=== PATIENT | male | born 1945 | race Caucasian/White ===

== ENCOUNTER 2017-05-24 13:15 | Inpatient (IN) | payer OTHER ==
[2017-05-24] MEDS: ENOXAPARIN 100 MG/ML SYR SQ SCH ×2 (03:00→15:00)
--- OUTSIDE RECORDS SUMMARY | 2017-05-24 13:17 | XMS REPORT ---
:1945 Author Organization eClinicalWorks Care Team Providers Name Role Phone OconnorRocco Provider Role Unavailable Allergies No Known Allergies Problems Problem Type Condition Code Onset Dates Condition Status Problem Hyperlipidemia, mixed E78.2 Active Problem Osteoarthritis of multiple joints M15.9 Active Problem Benign essential HTN I10 Active Assessment Osteoarthritis of multiple joints M15.9 Active Assessment Benign essential HTN I10 Active Assessment Hyperlipidemia, mixed E78.2 Active Medications Medication Code Code Instructions Start End Status Dosage System Date Date Norvasc [facility] 37196354991 10 MG Orally Inactive 1 tablet Once a day Hydrochlorothiazide [facility] 08565326430 12.5 MG Orally March Active 1 capsule Once a day 28, in the 2018 morning Lipitor [facility] 13460371507 20 MG Orally Active 1 tablet Once a day Cozaar [facility] 22123044526 50 MG Orally Active 1 tablet Once a day Results No Known Results Summary Purpose eClinicalWorks Submission
[2017-05-24 13:46] LABS: Absolute Lymphocytes (CBC) 1.8 K/uL (0.7-4.9); Absolute Monocytes 1.1 K/uL (0.1-1.3); Absolute Neutrophil 7.9 K/uL (1.8-8.0); Basophils % 0.7 % (0-1.3); Eosinophils % 0.7 % (0-4.4); Hematocrit 41.1 % (39.6-49.0); Lymphocytes % 16.8 % (15.3-44.8); MCH 29.3 pg (27.0-35.0); MCV 88.6 fL (80-100); MPV 9.1 fL (7.6-11.3); Monocytes % 9.8 % (3.3-12.3); RBC Red Blood Cell Count 4.64 M/uL (4.33-5.43)
[2017-05-24 13:50] LABS: Protime INR 1.03
[2017-05-24 13:52] LABS: Potassium 3.5 mEq/L (3.6-5.0)
--- NOTE | 2017-05-24 13:56 | RAD REPORT ---
EXAM DESCRIPTION: RAD - Chest Single View - 05/24/2017 1:48 pm CLINICAL HISTORY: Chest pain COMPARISON: April 16 TECHNIQUE: AP portable chest image was obtained 1344 hours . FINDINGS: Lungs are clear. Heart and vasculature are normal. No measurable pleural effusion and no p neumothorax. No gross bony abnormality seen. No acute aortic findings suspected. IMPRESSION: No acute cardiopulmonary process. No significant interval change.
[2017-05-24 13:58] LABS: Albumin 4.1 g/dL (3.2-5.5); Bilirubin Direct 0.2 mg/dL (0-0.2); Bilirubin Total 1.1 mg/dL (0.3-1.2); Magnesium 1.9 mg/dL (1.8-2.5); Protein, Total 7.7 g/dL (6.0-8.3)
[2017-05-24 14:02] LABS: CKMB Creatine Kinase MB 2.9 ng/ml (0.3-4.0)
[2017-05-24] MEDS ORDERED: NA CHLORIDE 0.9% 1,000 ML ONE (14:07)
[2017-05-24] MEDS ORDERED: ASPIRIN EC 81 MG TAB PO ONE (14:07)
[2017-05-24] MEDS ORDERED: FAMOTIDINE 20 MG/2 ML VIAL IV ONE (14:07)
--- NOTE | 2017-05-24 14:54 | EDPHYS ---
Physician Documentation [facility] Name: Amador Dyer Jr Age: 71 yrs Sex: Male : 1945 Arrival Date: 05/24/2017 Time: 13:19 Bed 26 Private MD: ED Physician Graeme Verde HPI: 05/24 14:35 This 71 yrs old Male presents to ER via EMS with complaints of Chest Pain > aaron 31 y/o. 14:35 The patient or guardian reports chest pain that is located primarily in the substernal aaron area, anterior chest wall. Onset: this morning. The pain radiates to Associated signs and symptoms: The patient has no apparent associated signs or symptoms. The chest pain is described as burning, a heaviness, a pressure. Duration: The patient or guardian reports a single episode, that is still ongoing, but improving. Modifying factors: The symptoms are alleviated by nothing. Severity of pain: At its worst the pain was moderate in the emergency department the pain has improved moderately. The patient has not experienced similar symptoms in the past. Historical: - Allergies: 13:29 No Known Allergies; kr2 - Home Meds: 13:24 losartan 50 mg oral tab [Active]; atorvastatin Oral [Active]; aspirin 81 mg Oral TbEC 1 kr2 tab once daily [Active]; atorvastatin oral oral [Active]; glucosamine-chondroitin oral oral [Active]; hydrochlorothiazide 12.5 mg Oral cap 1 cap once daily [Active]; senior vitamin [Active]; - PMHx: 13:24 High Cholesterol; Hypertension; kr2 - PSHx: 13:24 Appendectomy; Cholecystectomy; kr2 - Immunization history:: Adult Immunizations unknown. - Social history:: Smoking status: Patient/guardian denies using tobacco, the patient reports quitting approximately 15 years ago. - Family history:: not pertinent. ROS: 14:35 Constitutional: Negative for fever, chills, and weight loss, Eyes: Negative for injury, aaron pain, redness, and discharge, ENT: Negative for injury, pain, and discharge, Neck: Negative for injury, pain, and swelling, Respiratory: Negative for shortness of breath, cough, wheezing, and pleuritic chest pain, Abdomen/GI: Negative for abdominal pain, nausea, vomiting, diarrhea, and constipation, Back: Negative for injury and pain, : Negative for injury, bleeding, discharge, and swelling, MS/Extremity: Negative for injury and deformity, Skin: Negative for injury, rash, and discoloration, Neuro: Negative for headache, weakness, numbness, tingling, and seizure, Psych: Negative for depression, anxiety, suicide ideation, homicidal ideation, and hallucinations, Allergy/Immunology: Negative for hives, rash, and allergies, Endocrine: Negative for neck swelling, polydipsia, polyuria, polyphagia, and marked weight changes, Hematologic/Lymphatic: Negative for swollen nodes, abnormal bleeding, and unusual bruising. 14:35 Cardiovascular: Positive for chest pain. Exam: 14:35 Constitutional: This is a well developed, well nourished patient who is awake, alert, aaron and in no acute distress. Head/Face: Normocephalic, atraumatic. Eyes: Pupils equal round and reactive to light, extra-ocular motions intact. Lids and lashes normal. Conjunctiva and sclera are non-icteric and not injected. Cornea within normal limits. Periorbital areas with no swelling, redness, or edema. ENT: Nares patent. No nasal discharge, no septal abnormalities noted. Tympanic membranes are normal and external auditory canals are clear. Oropharynx with no redness, swelling, or masses, exudates, or evidence of obstruction, uvula midline. Mucous membranes moist. Neck: Trachea midline, no thyromegaly or masses palpated, and no cervical lymphadenopathy. Supple, full range of motion without nuchal rigidity, or vertebral point tenderness. No Meningismus. Chest/axilla: Normal chest wall appearance and motion. Nontender with no deformity. No lesions are appreciated. Respiratory: Lungs have equal breath sounds bilaterally, clear to auscultation and percussion. No rales, rhonchi or wheezes noted. No increased work of breathing, no retractions or nasal flaring. Abdomen/GI: Soft, non-tender, with normal bowel sounds. No distension or tympany. No guarding or rebound. No evidence of tenderness throughout. Back: No spinal tenderness. No costovertebral tenderness. Full range of motion. Male : Normal genitalia with no discharge or lesions. Skin: Warm, dry with normal turgor. Normal color with no rashes, no lesions, and no evidence of cellulitis. MS/ Extremity: Pulses equal, no cyanosis. Neurovascular intact. Full, normal range of motion. Neuro: Awake and alert, GCS 15, oriented to person, place, time, and situation. Cranial nerves II-XII grossly intact. Motor strength 5/5 in all extremities. Sensory grossly intact. Cerebellar exam normal. Normal gait. Psych: Awake, alert, with orientation to person, place and time. Behavior, mood, and affect are within normal limits. 14:35 Cardiovascular: Rate: normal, Rhythm: regular, Pulses: Pulses are 4+ in bilateral radial, brachial, femoral, popliteal, posterior tibial and and dorsalis pedis arteries.. Heart sounds: normal, Edema: 4+ edema to level of right forearm, left midcalf, left forearm and right midcalf, JVD: is not appreciated. Vital Signs: 13:19 BP 169 / 93; Pulse 76; Resp 18; Temp 98.6; Pulse Ox 98% on 2 lpm NC; Weight 104.33 kg; kr2 Height 5 ft. 11 in. (180.34 cm); Pain 4/10; 14:30 BP 171 / 96; Pulse 78; Resp 19; Pulse Ox 98% on 2 lpm NC; kr2 15:34 BP 158 / 93; Pulse 68; Resp 20; Pulse Ox 100% on 2 lpm NC; kr2 16:45 BP 134 / 97; Pulse 60; Resp 16; Pulse Ox 99% on 2 lpm NC; kr2 17:30 BP 119 / 95; Pulse 62; Resp 16; Pulse Ox 98% on 2 lpm NC; kr2 13:19 Body Mass Index 32.08 (104.33 kg, 180.34 cm) kr2 MDM: 13:19 Patient medically screened. [facility] 14:38 Data reviewed: vital signs, nurses notes, lab test result(s), EKG, radiologic studies, aaron plain films. 05/24 13:24 Order name: Basic Metabolic Panel; Complete Time: 14:31 05/24 13:24 Order name: BNP; Complete Time: 14:31 05/24 13:24 Order name: CBC with Diff; Complete Time: 14:31 05/24 13:24 Order name: Ckmb; Complete Time: 14:31 05/24 13:24 Order name: CPK; Complete Time: 14:05/24 13:24 Order name: LFT's; Complete Time: 14:31 ss 05/24 13:24 Order name: Magnesium; Complete Time: 14:31 ss 05/24 13:24 Order name: PT-INR; Complete Time: 14:31 05/24 13:24 Order name: Ptt, Activated; Complete Time: 14:31 ss 05/24 13:24 Order name: Troponin (emerg Dept Use Only); Complete Time: 14:31 ss 05/24 13:27 Order name: Lipase; Complete Time: 14:31 aaron 05/24 15:15 Order name: Basic Metabolic Panel EDMS 05/24 15:15 Order name: Basic Metabolic Panel EDMS 05/24 15:15 Order name: CBC with Automated Diff EDMS 05/24 13:24 Order name: XRAY Chest (1 view); Complete Time: 14:31 ss 05/24 15:15 Order name: CBC with Automated Diff EDMS 05/24 15:15 Order name: Troponin I EDMS 05/24 15:15 Order name: Troponin I EDMS 05/24 15:15 Order name: Troponin I EDNH 05/24 13:24 Order name: EKG; Complete Time: 13:25 05/24 13:24 Order name: Cardiac monitoring; Complete Time: 13:25 05/24 13:24 Order name: EKG - Nurse/Tech; Complete Time: 13:25 05/24 13:24 Order name: IV Saline Lock; Complete Time: 13:25 05/24 13:24 Order name: Labs collected and sent; Complete Time: 13:25 05/24 13:24 Order name: O2 Per Protocol; Complete Time: 13:25 05/24 13:24 Order name: O2 Sat Monitoring; Complete Time: 13:25 05/24 13:24 Order name: Urine Dipstick-Ancillary (obtain specimen); Complete Time: 14:25 05/24 14:56 Order name: CONS Physician Consult EDNH 05/24 15:15 Order name: Heart Healthy EDNH 05/24 15:15 Order name: NPO EDMS 05/24 15:15 Order name: EKG Electrocardiogram EDMS 05/24 15:15 Order name: EKG Electrocardiogram EDMS 05/24 15:15 Order name: EKG Electrocardiogram EDNH 05/24 15:15 Order name: EKG Electrocardiogram EDNH Administered Medications: 13:53 CANCELLED (received 324mg by EMS): Aspirin 162 mg PO once kr2 14:00 Drug: NS 0.9% 1000 ml Route: IV; Rate: 125 ml/hr; Site: left antecubital; kr2 17:27 Follow up: Response: No adverse reaction; IV Status: Infusion continued upon admission kr2 14:00 Drug: Pepcid 20 mg Route: IVP; Site: left antecubital; kr2 17:28 Follow up: Response: No adverse reaction kr2 15:11 Drug: Lopressor 2.5 mg Route: IVP; Site: left antecubital; kr2 17:26 Follow up: Response: No adverse reaction kr2 15:12 Drug: PlaVIX 600 mg Route: PO; kr2 17:26 Follow up: Response: No adverse reaction kr2 15:12 Drug: Lovenox 1 mg/kg Route: Sub-Q; Site: right lower abdomen; kr2 17:28 Follow up: Response: No adverse reaction kr2 15:12 Drug: Lopressor (metoprolol TARTRATE) 50 mg Route: PO; kr2 17:28 Follow up: Response: No adverse reaction kr2 15:23 Drug: Potassium Chloride 40 mEq Route: PO; kr2 17:27 Follow up: Response: No adverse reaction kr2 15:24 Not Given (pulse 59): Lopressor 2.5 mg IVP once; Hold for SBP <100 or HR <60. kr2 17:29 Not Given (Patient Refused): Zofran 4 mg IVP once; over 2 minutes kr2 17:30 Not Given (Patient Refused): morphine 2 mg IVP once kr2 Disposition: 05/24/17 14:53 Hospitalization ordered by Vega Lao for Inpatient Admission. Preliminary diagnosis are Other chest pain, Essential (primary) hypertension, Non-ST elevation (NSTEMI) myocardial infarction. - Bed requested for Intensive Care Unit. - Status is Inpatient Admission. kr2 - Condition is Stable. - Problem is new. - Symptoms have improved. UTI on Admission? No Signatures: Dispatcher [employer] EDOksana Martinez RN RN dw Anderson, Corey, MD MD cha Therrien, Shelly, LORIN-C ASSEMBLY MACHINE TOOL SETTER-Elizabeth Bill RN RN Jannet Back RN RN kr2 Corrections: (The following items were deleted from the chart) 13:53 13:27 Aspirin 162 mg PO once ordered. [facility] kr2
--- NOTE | 2017-05-24 14:54 | ER ---
Nurse's Notes [facility] Name: Amador Dyer Jr Age: 71 yrs Sex: Male : 1945 Arrival Date: 05/24/2017 Time: 13:19 Bed 26 Private MD: Diagnosis: Other chest pain;Essential (primary) hypertension;Non-ST elevation (NSTEMI) myocardial infarction Presentation: 05/24 13:24 Presenting complaint: EMS states: Patient complains of chest pain at 5/10 that started kr2 earlier this morning. Says he started HCTZ about 4 days ago. We did see a PVC on monitor, 12 lead showed NSR. Blood pressure on arrival was 184/110. He received 324mg aspirin, 0.4 of nitro spray sublingual. Vitals signs 142/89, pulse 88, sat 97% on 2 LPM. Transition of care: patient was not received from another setting of care. Onset of symptoms was May 24, 2017 at 09:30. Care prior to arrival: Medication(s) given: ASA, 81 mg, x 4, Nitroglycerin, 0.4 mg SL x 1, IV initiated. 20 GA, in the left antecubital area. 13:24 Method Of Arrival: EMS: [facility] kr2 13:24 Acuity: TIRSO 3 kr2 Triage Assessment: 13:30 General: Appears in no apparent distress. comfortable, well groomed, well developed, kr2 well nourished, Behavior is calm, cooperative, appropriate for age. Pain: Complains of pain in diaphragm and right breast Pain does not radiate. Pain currently is 4 out of 10 on a pain scale. Quality of pain is described as burning, pressure, Pain began gradually, Is continuous, Alleviated by medications, rest, Aggravated by increased activity. Cardiovascular: Heart tones S1 S2 present Capillary refill < 3 seconds in bilateral fingers Patient's skin is warm and dry. Rhythm is sinus rhythm. Historical: - Allergies: 13:29 No Known Allergies; kr2 - Home Meds: 13:24 losartan 50 mg oral tab [Active]; atorvastatin Oral [Active]; aspirin 81 mg Oral TbEC 1 kr2 tab once daily [Active]; atorvastatin oral oral [Active]; glucosamine-chondroitin oral oral [Active]; hydrochlorothiazide 12.5 mg Oral cap 1 cap once daily [Active]; senior vitamin [Active]; - PMHx: 13:24 High Cholesterol; Hypertension; kr2 - PSHx: 13:24 Appendectomy; Cholecystectomy; kr2 - Immunization history:: Adult Immunizations unknown. - Social history:: Smoking status: Patient/guardian denies using tobacco, the patient reports quitting approximately 15 years ago. - Family history:: not pertinent. Screenin:30 Abuse screen: Denies threats or abuse. Denies injuries from another. Nutritional kr2 screening: No deficits noted. Tuberculosis screening: No symptoms or risk factors identified. Fall Risk None identified. Assessment: 13:25 General: Appears in no apparent distress. comfortable, well groomed, well developed, kr2 well nourished, Behavior is calm, cooperative, appropriate for age. Pain: Complains of pain in diaphragm and right breast Pain does not radiate. Pain currently is 4 out of 10 on a pain scale. Quality of pain is described as burning, pressure, Pain began suddenly, Is continuous, Alleviated by rest. Neuro: Level of Consciousness is awake, alert, obeys commands, Oriented to person, place, time, situation, Appropriate for age. Cardiovascular: Heart tones S1 S2 present Capillary refill < 3 seconds in bilateral fingers Patient's skin is warm and dry. Rhythm is sinus rhythm. Respiratory: Airway is patent Respiratory effort is even, unlabored, Respiratory pattern is regular, symmetrical. GI: Abdomen is round non-distended. : Denies pain. EENT: Oral mucosa is moist. Derm: Skin is intact, is healthy with good turgor, Skin is pink, warm \T\ dry. Musculoskeletal: Circulation, motion, and sensation intact. 14:30 Reassessment: Patient appears in no apparent distress at this time. Patient and/or kr2 family updated on plan of care and expected duration. Pain level reassessed. Patient is alert, oriented x 3, equal unlabored respirations, skin warm/dry/pink. Patient states symptoms have improved. 15:33 Reassessment: Patient appears in no apparent distress at this time. Patient and/or kr2 family updated on plan of care and expected duration. Pain level reassessed. Patient is alert, oriented x 3, equal unlabored respirations, skin warm/dry/pink. Pain continues at around a 4/10. Patient did not want ordered Morphine or Zofran at this time. 16:30 Reassessment: Patient appears in no apparent distress at this time. Patient and/or kr2 family updated on plan of care and expected duration. Pain level reassessed. Patient is alert, oriented x 3, equal unlabored respirations, skin warm/dry/pink. Patient states symptoms have improved. Vital Signs: 13:19 BP 169 / 93; Pulse 76; Resp 18; Temp 98.6; Pulse Ox 98% on 2 lpm NC; Weight 104.33 kg; kr2 Height 5 ft. 11 in. (180.34 cm); Pain 4/10; 14:30 BP 171 / 96; Pulse 78; Resp 19; Pulse Ox 98% on 2 lpm NC; kr2 15:34 BP 158 / 93; Pulse 68; Resp 20; Pulse Ox 100% on 2 lpm NC; kr2 16:45 BP 134 / 97; Pulse 60; Resp 16; Pulse Ox 99% on 2 lpm NC; kr2 17:30 BP 119 / 95; Pulse 62; Resp 16; Pulse Ox 98% on 2 lpm NC; kr2 13:19 Body Mass Index 32.08 (104.33 kg, 180.34 cm) kr2 ED Course: 13:19 Patient arrived in ED. kr2 13:19 Graeme Verde MD is Attending Physician. aaron 13:27 EKG done, by prosthetics lab technician. reviewed by Miguel Jordan MD. tc 13:29 Triage completed. kr2 13:31 Arm band placed on. kr2 13:31 Patient has correct armband on for positive identification. Bed in low position. Call kr2 light in reach. Side rails up X2. Adult w/ patient. engine monitor on. Pulse ox on. NIBP on. Door closed. Verbal reassurance given. Head of bed elevated. 13:32 Maintain EMS IV. Dressing intact. Good blood return noted. Site clean \T\ dry. Gauge \T\ kr 2 site: 20g Left AC. Patient maintains SpO2 saturation greater than 95% on room air. 13:33 aJnnet Back, EARL is Primary Nurse. kr2 13:46 X-ray completed. Portable x-ray completed in exam room. Patient tolerated procedure sw well. 13:47 XRAY Chest (1 view) In Process Unspecified. EDMS 14:49 Vega Lao DO is Hospitalizing Provider. [facility] 17:15 No provider procedures requiring assistance completed. Patient admitted, IV remains in kr2 place. Administered Medications: 13:53 CANCELLED (received 324mg by EMS): Aspirin 162 mg PO once kr2 14:00 Drug: NS 0.9% 1000 ml Route: IV; Rate: 125 ml/hr; Site: left antecubital; kr2 17:27 Follow up: Response: No adverse reaction; IV Status: Infusion continued upon admission kr2 14:00 Drug: Pepcid 20 mg Route: IVP; Site: left antecubital; kr2 17:28 Follow up: Response: No adverse reaction kr2 15:11 Drug: Lopressor 2.5 mg Route: IVP; Site: left antecubital; kr2 17:26 Follow up: Response: No adverse reaction kr2 15:12 Drug: PlaVIX 600 mg Route: PO; kr2 17:26 Follow up: Response: No adverse reaction kr2 15:12 Drug: Lovenox 1 mg/kg Route: Sub-Q; Site: right lower abdomen; kr2 17:28 Follow up: Response: No adverse reaction kr2 15:12 Drug: Lopressor (metoprolol TARTRATE) 50 mg Route: PO; kr2 17:28 Follow up: Response: No adverse reaction kr2 15:23 Drug: Potassium Chloride 40 mEq Route: PO; kr2 17:27 Follow up: Response: No adverse reaction kr2 15:24 Not Given (pulse 59): Lopressor 2.5 mg IVP once; Hold for SBP <100 or HR <60. kr2 17:29 Not Given (Patient Refused): Zofran 4 mg IVP once; over 2 minutes kr2 17:30 Not Given (Patient Refused): morphine 2 mg IVP once kr2 Outcome: 14:53 Decision to Hospitalize by Provider. aaron 17:15 Admitted to ICU accompanied by nurse, accompanied by tech, via stretcher, room 6, with kr2 oxygen, on monitor, with chart, Report called to Susu Zelaya RN 17:15 Condition: stable 17:15 Instructed on the need for admit, Demonstrated understanding of instructions. 17:31 Patient left the ED. kr2 Signatures: Dispatcher [employer] EDGraeme Polo MD MD cha Callis, Tiffany, full decator operator EKG Ttc Dutch, Marilia sw Nazanin, Jannet, RN RN kr2 Corrections: (The following items were deleted from the chart) 13:33 13:24 Care prior to arrival: Medication(s) given: ASA, 81 mg, x 4, Nitroglycerin, 0.4 kr2 mg SL x 1, kr2 15:36 13:19 BP 169 / 93; Pulse 76bpm; Resp 18bpm; Pulse Ox 98% RA; Temp 98.6F; 104.33 kg; kr2 Height 5 ft. 11 in.; BMI: 32.0; Pain 4/10; kr2
[2017-05-24] MEDS ORDERED: MORPHINE 4 MG/ML SYR IV PRN (15:07)
[2017-05-24] MEDS ORDERED: ACETAMINOPHEN 500 MG TAB PO PRN (15:07)
[2017-05-24] MEDS ORDERED: ONDANSETRON 4 MG/2 ML VIAL IV PRN (15:07)
[2017-05-24] MEDS ORDERED: METOPROLOL TARTRATE 5 MG/5 ML INJ IV ONE (15:17)
[2017-05-24] MEDS ORDERED: ONDANSETRON 4 MG/2 ML VIAL ONE (15:17)
[2017-05-24] MEDS ORDERED: MORPHINE 4 MG/ML SYR ONE (15:17)
[2017-05-24] MEDS ORDERED: METOPROLOL TAR 50 MG TAB ONE (15:17)
--- NOTE | 2017-05-24 15:20 | P.HP ---
Certification for Inpatient With expected LOS: >2 Midnights Patient will require the following post-hospital care: None Practitioner: I am a practitioner with admitting privileges, knowledge of patient current condition, hospital course, and medical plan of care. Services: Services provided to patient in accordance with Admission requirements found in Title 42 Section 412.3 of the Code of Federal Regulations <Sissy Patel - Last Filed: 05/24/17 15:14> Patient admitted to: Inpatient With expected LOS: >2 Midnights Patient will require the following post-hospital care: None Practitioner: I am a practitioner with admitting privileges, knowledge of patient current condition, hospital course, and medical plan of care. Services: Services provided to patient in accordance with Admission requirements found in Title 42 Section 412.3 of the Code of Federal Regulations <Vega Lao - Last Filed: 05/24/17 18:31> Patient History Date of Service: 05/24/17 Primary Care Provider: Dawson New Reason for admission: Nonstemi History of Present Illness: Pt states this am he had a pressure, burning across his left chest to right, denies nausea, vomiting, diaphoresis, dizziness Home medications list reviewed: Yes - Past Medical/Surgical History Has patient received pneumonia vaccine in the past: No Diabetic: No -: hypertension -: hyperlipidemia -: appendectomy -: cholecystectomy Past Surgical History: Reviewed- Non-Contributory -: cholecystectomy -: appendectomy - Family History Father -: GI disease, Stroke Mother -: Heart disease - Social History Smoking Status: Former smoker Smoking therapy provided: No Alcohol use: Yes CD- Drugs: No Caffeine use: Yes Place of Residence: Home <Sissy Patel - Last Filed: 05/24/17 15:14> Date of Service: 05/24/17 Primary Care Provider: Dr. Oconnor; Cardiology-Dr. Dumont Home medications list reviewed: Yes - Past Medical/Surgical History Has patient received pneumonia vaccine in the past: No Diabetic: No Psychosocial/ Personal History: Patient lives at home. - Family History Father History Unknown: Yes -: GI disease, Stroke Mother History Unknown: Yes -: Heart disease Brother -: Heart disease, Hypertension Notes: 2 years ago mi and passed Sister History Unknown: Yes -: Heart disease, Hypertension, Other (see notes) Notes: brain tumor, and soon after sx - Social History Smoking Status: Former smoker Smoking therapy provided: No Alcohol use: Yes CD- Drugs: No Caffeine use: Yes Place of Residence: Home <Vega Lao - Last Filed: 05/24/17 18:31> Allergies No Known Allergies Allergy (Verified 05/24/17 17:50) Home Medications: Losartan Potassium [Cozaar] 50 mg PO BEDTIME 11/04/14 Aspirin [Adult Low Dose Aspirin EC] 81 mg PO BEDTIME 05/24/17 Atorvastatin Calcium 20 mg PO BEDTIME 05/24/17 Glucosam HCl/Chondro Pena A/C/Mn [Glucosamine-Chondroitin Cap] 1 each PO BEDTIME 05/24/17 Hydrochlorothiazide [Hydrochlorothiazide*] 12.5 mg PO DAILY 05/24/17 Multivit-Min/FA/Lycopen/Lutein [Senior Tabs] 1 each PO BEDTIME 05/24/17 Review of Systems General: Unremarkable Eyes: Unremarkable ENT: Unremarkable Respiratory: Unremarkable Cardiovascular: Chest Pain Gastrointestinal: Unremarkable Genitourinary: Unremarkable Musculoskeletal: Unremarkable Integumentary: Unremarkable Neurological: Unremarkable Lymphatics: Unremarkable <Sissy Patel - Last Filed: 05/24/17 15:14> General: Unremarkable Eyes: Unremarkable ENT: Unremarkable Respiratory: Unremarkable Cardiovascular: Chest Pain Gastrointestinal: Unremarkable Genitourinary: Unremarkable Musculoskeletal: Unremarkable Integumentary: Unremarkable Neurological: Unremarkable Lymphatics: Unremarkable <Vega Lao - Last Filed: 05/24/17 18:31> Physical Examination - Vital Signs Temperature: 98.6 F Blood Pressure: 169/93 Pulse: 76 Respirations: 18 Pulse Ox (%): 98 - Physical Exam General: Alert, In no apparent distress HEENT: Atraumatic, Normocephalic, PERRLA, EOMI Neck: Supple, 2+ carotid pulse no bruit, JVD not distended Respiratory: Clear to auscultation bilaterally, Normal air movement Cardiovascular: No edema, Normal pulses Capillary refill: <2 Seconds Gastrointestinal: Hyperactive Musculoskeletal: No clubbing, No swelling, No contractures, No erythema Integumentary: No rashes, No breakdown Neurological: Normal gait, Normal speech, Normal strength at 5/5 x4 extr, Normal tone Lymphatics: No axilla or inguinal lymphadenopathy External genitalia: Deferred Rectal: Deferred - Studies Laboratory Data (last 24 hrs) 05/24/17 13:20: Lipase 16 L 05/24/17 13:20: PT 12.2, INR 1.03, APTT 27.9 05/24/17 13:20: WBC 11.0 H, Hgb 13.6, Hct 41.1, Plt Count 297 05/24/17 13:20: B-Natriuretic Peptide 17 05/24/17 13:20: Sodium 138, Potassium 3.5 L, BUN 16, Creatinine 1.04, Glucose 106, Magnesium 1.9, Total Bilirubin 1.1, AST 26, ALT 22, Alkaline Phosphatase 75 <Sissy Patel - Last Filed: 05/24/17 15:14> - Physical Exam General: Alert, In no apparent distress, Oriented x3, Cooperative HEENT: Atraumatic, Normocephalic, PERRLA, EOMI Neck: Supple, 2+ carotid pulse no bruit, JVD not distended Respiratory: Clear to auscultation bilaterally, Normal air movement Cardiovascular: No edema, Normal pulses Capillary refill: <2 Seconds Gastrointestinal: No ascites, No tenderness, No masses, No rebound, No guarding , Hyperactive Musculoskeletal: No clubbing, No swelling, No contractures, No erythema Integumentary: No rashes, No breakdown Neurological: Normal gait, Normal speech, Normal strength at 5/5 x4 extr, Normal tone Lymphatics: No axilla or inguinal lymphadenopathy External genitalia: Deferred Rectal: Deferred - Studies Laboratory Data (last 24 hrs) 05/24/17 13:20: Lipase 16 L 05/24/17 13:20: PT 12.2, INR 1.03, APTT 27.9 05/24/17 13:20: WBC 11.0 H, Hgb 13.6, Hct 41.1, Plt Count 297 05/24/17 13:20: B-Natriuretic Peptide 17 05/24/17 13:20: Sodium 138, Potassium 3.5 L, BUN 16, Creatinine 1.04, Glucose 106, Magnesium 1.9, Total Bilirubin 1.1, AST 26, ALT 22, Alkaline Phosphatase 75 <Vega Lao - Last Filed: 05/24/17 18:31> Assessment and Plan - Problems (Diagnosis) (1) Chest pain due to coronary artery disease Onset Date: ~05/24/17 Current Visit: Yes Status: Acute Discharge Plan: Home Plan to discharge in: 48 Hours - Advance Directives Does patient have a Living Will: No Does patient have a Durable POA for Healthcare: No - Code Status/Comfort Care Code Status Assessed: Yes Code Status: Full Code <Sissy Patel - Last Filed: 05/24/17 15:14> - Problems (Diagnosis) (1) NSTEMI (non-ST elevated myocardial infarction) Current Visit: Yes Status: Acute Plan: Patient seen by Cardiology. Patient will have have heart catheterization tomorrow. (2) Chest pain due to coronary artery disease Onset Date: ~05/24/17 Current Visit: Yes Status: Acute Plan: Heart catheterization scheduled for tomorrow. (3) Hypertension Current Visit: Yes Status: Chronic Plan: Will continue with his medication. Qualifiers: Hypertension type: essential hypertension Qualified Code(s): I10 - Essential (primary) hypertension (4) Hyperlipidemia Current Visit: Yes Status: Chronic Plan: Will check fasting lipid panel. Qualifiers: Hyperlipidemia type: unspecified Qualified Code(s): E78.5 - Hyperlipidemia , unspecified (5) Obesity Current Visit: Yes Status: Chronic Plan: Will address lifestyle medication. Qualifiers: Obesity type: due to excess calories Obesity classification: adult class 1 (BMI 30 - 34.9) Serious obesity comorbidity presence: with serious comorbidity Body mass index: BMI 32.0-32.9 Qualified Code(s): E66.09 - Other obesity due to excess calories; Z68.32 - Body mass index (BMI) 32.0-32.9, adult; Z68.32 - Body mass index (BMI) 32.0-32.9, adult Discharge Plan: Home Plan to discharge in: 48 Hours - Advance Directives Does patient have a Living Will: No Does patient have a Durable POA for Healthcare: No - Code Status/Comfort Care Code Status Assessed: Yes Code Status: Full Code Time Spent Managing Pts Care (In Minutes): 55 <Vega Lao - Last Filed: 05/24/17 18:31>
[2017-05-24] MEDS ORDERED: CLOPIDOGREL 75 MG TABLET ONE (15:22)
[2017-05-24] MEDS ORDERED: ENOXAPARIN 100 MG/ML SYR SQ ONE (15:23)
[2017-05-24] MEDS ORDERED: ENOXAPARIN 100 MG/ML SYR SQ SCH (15:30)
[2017-05-24] MEDS ORDERED: POTASSIUM CL SA 10 MEQ TAB PO ONE (15:36)
[2017-05-24] MEDS: ATORVASTATIN 20 MG TAB PO SCH (19:58)
[2017-05-25] MEDS: ENOXAPARIN 100 MG/ML SYR SQ SCH (03:42)
[2017-05-25 05:02] LABS: Absolute Lymphocytes (CBC) 2.7 K/uL (0.7-4.9); Absolute Monocytes 1.2 K/uL (0.1-1.3); Absolute Neutrophil 6.3 K/uL (1.8-8.0); Basophils % 1.1 % (0-1.3); Eosinophils % 1.7 % (0-4.4); Hematocrit 43.1 % (39.6-49.0); Lymphocytes % 25.5 % (15.3-44.8); MCH 30.9 pg (27.0-35.0); MCV 88.6 fL (80-100); MPV 9.2 fL (7.6-11.3); Monocytes % 11.8 % (3.3-12.3); RBC Red Blood Cell Count 4.87 M/uL (4.33-5.43)
[2017-05-25 05:58] LABS: Thyroid Stimulating Hormone 1.45 uIU/mL (0.34-5.60)
--- NOTE | 2017-05-25 07:37 | EKG ---
Test Date: 2017-05-24 Test Time: 14:46:15 Sales Planning Coordinator: BETTY MEASUREMENT RESULTS: Intervals: Rate: 73 [place]: 180 QRSD: 84 QT: 402 QTc: 442 [place]: P: 50 [place]: 180 QRS: -42 T: 30 INTERPRETIVE STATEMENTS: Normal sinus rhythm Left axis deviation Abnormal ECG Compared to ECG 05/24/2017 13:11:08 No significant changes Electronically Signed On 05-25-17 07:35:00 CDT by Juanjo Dumont
--- NOTE | 2017-05-25 07:37 | EKG ---
Test Date: 2017-05-24 Test Time: 13:11:08 Rod Tape Operator: BETTY MEASUREMENT RESULTS: Intervals: Rate: 79 [place]: 176 QRSD: 86 QT: 394 QTc: 451 [place]: P: 60 [place]: 176 QRS: -36 T: 43 INTERPRETIVE STATEMENTS: Normal sinus rhythm Left axis deviation Abnormal ECG Compared to ECG 04/16/2016 17:41:18 No significant changes Electronically Signed On 05-25-17 07:35:05 CDT by Juanjo Dumont
--- NOTE | 2017-05-25 08:32 | P.PN ---
Subjective Date of Service: 05/25/17 Primary Care Provider: Dr. Oconnor; Cardiology-Dr. Dumont Chief Complaint: Nonstemi Subjective: Doing well Physical Examination - Vital Signs Temperature: 97.7 F Blood Pressure: 161/86 Pulse: 60 Respirations: 10 Pulse Ox (%): 98 - Physical Exam General: Alert, In no apparent distress, Oriented x3, Cooperative HEENT: Atraumatic, Mucous membr. moist/pink Neck: Supple, No Thyromegaly Respiratory: Clear to auscultation bilaterally, Normal air movement Cardiovascular: Normal pulses, Regular rate/rhythm Gastrointestinal: Normal bowel sounds, Soft and benign, Non-distended, No tenderness, No masses, No rebound, No guarding Musculoskeletal: No erythema, No tenderness, No warmth Integumentary: No tenderness/swelling, No erythema, No warmth, No cyanosis Neurological: Normal speech, Normal strength at 5/5 x4 extr, Normal tone, Normal affect - Studies Laboratory Data (last 24 hrs) 05/24/17 13:20: Lipase 16 L 05/24/17 13:20: PT 12.2, INR 1.03, APTT 27.9 05/24/17 13:20: WBC 11.0 H, Hgb 13.6, Hct 41.1, Plt Count 297 05/24/17 13:20: B-Natriuretic Peptide 17 05/24/17 13:20: Sodium 138, Potassium 3.5 L, BUN 16, Creatinine 1.04, Glucose 106, Magnesium 1.9, Total Bilirubin 1.1, AST 26, ALT 22, Alkaline Phosphatase 75 Medications List Reviewed: Yes Assessment & Plan - Problems (Diagnosis) (1) NSTEMI (non-ST elevated myocardial infarction) Current Visit: Yes Status: Acute Plan: Patient to have heart catheterization today, await findings. (2) Chest pain due to coronary artery disease Onset Date: ~05/24/17 Current Visit: Yes Status: Acute Plan: Heart catheterization scheduled for today. Await findings. (3) Hypertension Current Visit: Yes Status: Chronic Plan: Will continue with his medication. Qualifiers: Hypertension type: essential hypertension Qualified Code(s): I10 - Essential (primary) hypertension (4) Hyperlipidemia Current Visit: Yes Status: Chronic Plan: Will continue with medication. Qualifiers: Hyperlipidemia type: unspecified Qualified Code(s): E78.5 - Hyperlipidemia , unspecified (5) Obesity Current Visit: Yes Status: Chronic Plan: Will address lifestyle medication. Qualifiers: Obesity type: due to excess calories Obesity classification: adult class 1 (BMI 30 - 34.9) Serious obesity comorbidity presence: with serious comorbidity Body mass index: BMI 32.0-32.9 Qualified Code(s): E66.09 - Other obesity due to excess calories; Z68.32 - Body mass index (BMI) 32.0-32.9, adult; Z68.32 - Body mass index (BMI) 32.0-32.9, adult Discharge Plan: Home Plan to discharge in: 24 Hours Time Spent Managing Pts Care (In Minutes): 55
[2017-05-25] MEDS ORDERED: CLOPIDOGREL 75 MG TABLET PO SCH (09:00)
[2017-05-25] MEDS ORDERED: LOSARTAN/HCTZ 50-12.5 PO SCH (09:00)
[2017-05-25] MEDS ORDERED: ASPIRIN EC 81 MG TAB PO SCH ×2 (09:00)
[2017-05-25] MEDS ORDERED: HYDRALAZINE HCL 20 MG/ML VIAL IV ONE (09:11)
[2017-05-25] MEDS ORDERED: HEPARIN 5000 UNIT/ML 1 ML VIAL ONE (09:39)
[2017-05-25] MEDS ORDERED: NICARDIPINE HCL 25 MG/10 ML IV ONE (09:40)
[2017-05-25] MEDS ORDERED: ATROPINE SULF 1 MG/10 ML SYR IV ONE (09:40)
[2017-05-25] MEDS ORDERED: NA CHLORIDE 0.9% 0 ML ONE (09:40)
[2017-05-25] MEDS ORDERED: LIDOCAINE 1% 20 ML MDV ONE (09:42)
--- NOTE | 2017-05-25 09:52 | EKG ---
Test Date: 2017-05-25 Test Time: 08:10:45 Bending Shed Worker: DANETTE MEASUREMENT RESULTS: Intervals: Rate: 70 [place]: 180 QRSD: 84 QT: 410 QTc: 442 [place]: P: 70 [place]: 180 QRS: -46 T: -6 INTERPRETIVE STATEMENTS: Normal sinus rhythm Left axis deviation Abnormal ECG Compared to ECG 05/24/2017 14:46:15 No significant changes Electronically Signed On 05-25-17 09:51:35 CDT by Ed Reeves
[2017-05-25] MEDS ORDERED: NA CHLORIDE 0.9% 500 ML ONE (10:13)
[2017-05-25] MEDS ORDERED: FENTANYL CITR 100 MCG/2 ML ONE (10:14)
[2017-05-25] MEDS ORDERED: MIDAZOLAM HCL 2 MG/2 ML INJ ONE ×2 (10:14→10:27)
[2017-05-25] MEDS ORDERED: NITROGLYCERIN 0.4 MG/TAB SL PRN (10:58)
--- NOTE | 2017-05-25 12:11 | CON ---
Date of Consultation: 05/24/2017 Reason For Consultation: Non-ST elevation myocardial infarction. History Of Present Illness: The patient is a 71-year-old white male. I had seen him in the office i n the past. He had a stress test about 2 months ago that was negative. He has a history of hyperten marissa, dyslipidemia. He came in with hypertensive episode with chest burning with exertion. positive troponin. No PND, orthopnea, pedal edema, palpitations, or syncope. Denied nausea, vomiting, or velasquez phoresis. EKG was nonspecific. Chest x-ray was negative. Rest of the blood work was unremarkable. Past Medical History: As stated above. Allergies: NONE. Review of Systems: Negative. Social History: Negative. Family History: Negative. Medications: Listed by admitting physician. Physical Examination: General: When I saw him, his blood pressure was 160/84, pulse is 78, sinus rhythm, afebrile. HEENT: Negative. Neck: Supple without any bruit, lymphadenopathy, JVD, thyromegaly. Chest: Clear to auscultation and percussion. Cardiac: revealed a regular rhythm and rate without any murmurs, gallops, or rubs. Abdomen: Benign. Extremities: No clubbing, cyanosis, or edema. Diagnostic Data: As stated earlier. Impression And Plan: The patient with multiple cardiac risk factors including hypertension, dyslipid emia, age, and gender, with classic symptoms for acute coronary syndrome. Troponin suggestive of non -ST elevation myocardial infarction. EKG is nonspecific. No allergies. Risk and the benefits of a heart catheterization were explained to him in detail. He agrees to proceed. He understands the ris k and the benefit. The catheterization will be done on 05/25/2017, by Dr. Reeves. We will continue present regimen right now including aspirin, beta blockers, Lovenox and statin. NB/MODL Voice ID: [id number] Report ID: [id number]
--- NOTE | 2017-05-25 12:17 | CON ---
Identification: A 71-year-old man. Chief Complaint: Chest pain. History Of Present Illness: The patient has been in good health. A few weeks ago, he started notici ng more difficulty exerting himself. Yesterday, he had the same feeling at rest. It is a heavy feel ing in the chest. It went away after an hour or so. He came to the emergency room. There was no EK G change, but enzymes have become abnormal overnight and the highest troponin he has had is 1.11. Gissel potter had a vascular event before. For years, he has been treated for hypertension and dyslipidemia. He does not have diabetes. Does not use tobacco. A stress test he had 14 months ago was called taty molina. Outpatient Medications: Losartan, hydrochlorothiazide, aspirin, atorvastatin, and multivitamin. Social History: He uses no tobacco, no alcohol, no illegal drugs. Allergies: NO ALLERGIES. Physical Examination: Vital Signs: 5 feet 11 inches, 229 pounds. General: Obese, alert, oriented, pleasant, not in distress. Lungs: Clear. Neck: Carotids no bruit. HEENT: Normal. Heart: Within normal limits. No murmur. Abdomen: Soft. Extremities: Normal pulses. Radial pulses normal bilaterally. Raudel's test, normal on the right. Diagnostic Data: EKG shows sinus rhythm, leftward axis, otherwise it is normal. Laboratory Data: His creatinine is 1.21. It was 1.04 on admission. Blood sugar was 106 on admissio n and 114 this morning. Impression: The patient has an unstable acute coronary syndrome without ST elevation. He should und ergo cardiac cath and possible stent. We will do that later this morning. He is n.p.o.. He seems t o understand the procedure. I have recommended its potential benefits, indications, risks, and agree s to proceed. RUPERT/EMELIA Voice ID: [id number] Report ID: [id number]
[2017-05-25] MEDS ORDERED: ACETAMINOPHEN 325 MG TABLET PO PRN (12:31)
[2017-05-25] MEDS: NA CHLORIDE 0.9% 1,000 ML IV SCH (13:00)
[2017-05-25] MEDS: METOPROLOL XL 25 MG TAB PO SCH (17:11)
--- NOTE | 2017-05-25 21:01 | OP ---
Surgeon: Ed Reeves MD Procedures: Left heart catheterization, coronary left ventricular angiography. Findings: The patient's ejection fraction is normal. There is a very small area on the diaphragmati c surface of the left ventricle that is mildly hypokinetic. Left ventricular end-diastolic pressure and systolic pressure were normal. No aortic valve gradient on pullback. Coronary arteries have no stenosis. There is a dual ostium of the left system. He is right dominant. There is no stenosis. There is a myocardial bridge over the midportion of the LAD. 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 Procedure In Detail: The patient was brought to the cardiac laborer/key man in a fasting state. He gave us informed consent. He was prepared and draped in the usual sterile fashion. Right radial approach w as used. The area around the right radial artery was anesthetized using 1% lidocaine. The artery wa s entered using a 21-gauge needle. We used a 0.021 inch diameter guidewire and a [employer] radial sheat h to cannulate the right radial artery. We administered the radial cocktail consisting of heparin, n itroglycerin, and nicardipine. We used a TIG catheter, a [employer] glidewire to navigate the catheter i nto the ascending aorta. We used a TIG catheter to angiogram left coronary with selective injections of the LAD and circumflex and right coronary artery. We did 3 views of the right coronary to look a t distal branches and posterolateral branches and again no stenosis was found. We angiogram the left ventricle using the same TIG catheter. At the end of the procedure, the catheters were flushed and removed over a wire. The sheath was removed and a TR band was applied for closure. There were no co mplications from the procedure. Estimated Blood Loss: 5 cc. Dietetic Tech: Renetta Vasquez. ELENO Voice ID: [id number] Report ID: [id number]
[2017-05-25] MEDS: ATORVASTATIN 20 MG TAB PO SCH (21:31)
[2017-05-26] MEDS: NA CHLORIDE 0.9% 1,000 ML IV SCH (03:18)
[2017-05-26 04:53] LABS: Absolute Lymphocytes (CBC) 1.7 K/uL (0.7-4.9); Absolute Neutrophil 5.8 K/uL (1.8-8.0); Basophils % 0.5 % (0-1.3); Eosinophils % 1.6 % (0-4.4); Hematocrit 40.4 % (39.6-49.0); Lymphocytes % 19.2 % (15.3-44.8); MCH 30.3 pg (27.0-35.0); MCV 88.3 fL (80-100); Monocytes % 11.9 % (3.3-12.3); RBC Red Blood Cell Count 4.57 M/uL (4.33-5.43)
[2017-05-26 05:08] LABS: Potassium 3.9 mEq/L (3.6-5.0)
[2017-05-26] MEDS: METOPROLOL XL 25 MG TAB PO SCH (06:45)
[2017-05-26] MEDS ORDERED: CLOPIDOGREL 75 MG TABLET PO SCH (09:00)
[2017-05-26] MEDS ORDERED: AMLODIPINE 5 MG TAB PO SCH (09:00)
--- NOTE | 2017-05-26 10:50 | P.DS ---
Admission Date: 05/24/17 Discharge Date: 05/26/17 Primary Care Provider: Dr. Oconnor; Cardiology-Dr. Dumont Disposition: ROUTINE DISCHARGE Discharge Condition: GOOD Reason for Admission: Nonstemi Consultations: Cardiology-Dr. Reeves Procedures: Heart catheterization: Surgeon: Ed Reeves MD Procedures: Left heart catheterization, coronary left ventricular angiography. Findings: The patient's ejection fraction is normal. There is a very small area on the diaphragmatic surface of the left ventricle that is mildly hypokinetic. Left ventricular end-diastolic pressure and systolic pressure were normal. No aortic valve gradient on pullback. Coronary arteries have no stenosis. There is a dual ostium of the left system. He is right dominant. There is no stenosis. There is a myocardial bridge over the midportion of the LAD. Impression: The patient had myocardial necrosis of the diaphragmatic surface of the inferior wall, probably due to coronary spasm and our recommendation is for medical therapy for his coronary artery disease, which is minimal. - Problems (1) NSTEMI (non-ST elevated myocardial infarction) Onset Date: 05/26/17 Status: Acute (2) Chest pain due to coronary artery disease Onset Date: 05/26/17 Status: Acute (3) Hypertension Onset Date: 05/26/17 Status: Chronic Qualifiers: Hypertension type: essential hypertension Qualified Code(s): I10 - Essential (primary) hypertension (4) Hyperlipidemia Onset Date: 05/26/17 Status: Chronic Qualifiers: Hyperlipidemia type: unspecified Qualified Code(s): E78.5 - Hyperlipidemia , unspecified (5) Obesity Onset Date: 05/26/17 Status: Chronic Qualifiers: Obesity type: due to excess calories Obesity classification: adult class 1 (BMI 30 - 34.9) Serious obesity comorbidity presence: with serious comorbidity Body mass index: BMI 32.0-32.9 Qualified Code(s): E66.09 - Other obesity due to excess calories; Z68.32 - Body mass index (BMI) 32.0-32.9, adult; Z68.32 - Body mass index (BMI) 32.0-32.9, adult Brief History of Present Illness: 71-year-old male presented to emergency room with chest pain. Patient with previous history of hyperlipidemia and hypertension. Patient found to have elevated troponin suspicious for non ST wave TN. Patient was admitted for treatment. Hospital Course: The patient was evaluated for chest pain and non ST wave TN. Patient was seen and evaluated by Cardiology. Heart catheterization was recommended. Heart catheterization done. Ejection fraction was normal. There was a very small area on the diaphragmatic surface of the left ventricle that is mildly hypokinetic likely coronary spasm. Coronary arteries showed no stenosis. Patient had mild CAD. Cardiology recommended medical therapy. At discharge patient will continue with aspirin 81 mg daily along with Plavix 75 mg daily. Patient will be given nitroglycerin to be use as needed for chest pain. Recommendation is for the patient to follow up with cardiology in 1 week to follow up this hospitalization. Patient has hypertension. Medications have been adjusted. Patient will no longer take losartan/hydrochlorothiazide. New medication includes metoprolol 25 mg 1 pill twice daily and Norvasc 5 mg daily. Recommendation is to maintain blood pressures less 150/80. Further adjustment can be done by his PCP or cardiology. Patient has hyperlipidemia. Patient will continue with Lipitor 20 mg 1 pill once daily. Vital Signs/Physical Exam: Temp Pulse Resp BP Pulse Ox 97.8 F 64 16 104/66 98 05/26/17 08:00 05/26/17 08:23 05/26/17 08:00 05/26/17 08:23 05/26/17 08:00 General: Alert, In no apparent distress, Oriented x3, Cooperative HEENT: Atraumatic, Mucous membr. moist/pink Neck: Supple, No Thyromegaly Respiratory: Clear to auscultation bilaterally Cardiovascular: Normal pulses, Regular rate/rhythm Gastrointestinal: Normal bowel sounds, Soft and benign, Non-distended, No tenderness, No masses, No rebound, No guarding Musculoskeletal: No erythema, No tenderness, No warmth Integumentary: No tenderness/swelling, No erythema, No warmth, No cyanosis Neurological: Normal speech, Normal strength at 5/5 x4 extr, Normal tone, Normal affect Lymphatics: No axilla or inguinal lymphadenopathy Laboratory Data at Discharge: WBC 8.6 K/uL (4.3-10.9) D 05/26/17 04:12 Hgb 13.8 g/dL (13.6-17.9) 05/26/17 04:12 Hct 40.4 % (39.6-49.0) 05/26/17 04:12 Plt Count 258 K/uL (152-406) 05/26/17 04:12 PT 12.2 SECONDS (9.5-12.5) 05/24/17 13:20 INR 1.03 05/24/17 13:20 APTT 27.9 SECONDS (24.3-36.9) 05/24/17 13:20 Sodium 137 mEq/L (135-145) 05/26/17 04:12 Potassium 3.9 mEq/L (3.6-5.0) 05/26/17 04:12 BUN 17 mg/dL (6-20) 05/26/17 04:12 Creatinine 1.15 mg/dL (0.61-1.24) 05/26/17 04:12 Glucose 111 mg/dL (65-120) 05/26/17 04:12 Magnesium 1.9 mg/dL (1.8-2.5) 05/24/17 13:20 Total Bilirubin 1.1 mg/dL (0.3-1.2) 05/24/17 13:20 AST 26 IU/L (10-42) 05/24/17 13:20 ALT 22 IU/L (10-60) 05/24/17 13:20 Alkaline Phosphatase 75 IU/L (42-121) 05/24/17 13:20 Troponin I 1.11 ng/mL (<0.03) H* 05/24/17 21:18 B-Natriuretic Peptide 17 pg/ml (<=100) 05/24/17 13:20 Triglycerides 81 mg/dL (35-160) 05/25/17 04:34 Cholesterol 134 mg/dL (<200) 05/25/17 04:34 HDL Cholesterol 56 mg/dL (27-67) 05/25/17 04:34 Cholesterol/HDL Ratio 2.39 05/25/17 04:34 Lipase 16 U/L (22-51) L 05/24/17 13:20 Home Medications: Aspirin [Adult Low Dose Aspirin EC] 81 mg PO BEDTIME 05/24/17 Atorvastatin Calcium 20 mg PO BEDTIME 05/24/17 Glucosam HCl/Chondro Pena A/C/Mn [Glucosamine-Chondroitin Cap] 1 each PO BEDTIME 05/24/17 Multivit-Min/FA/Lycopen/Lutein [Senior Tabs] 1 each PO BEDTIME 05/24/17 Amlodipine [Norvasc*] 5 mg PO DAILY #30 tab 05/26/17 Clopidogrel Bisulfate [Plavix*] 75 mg PO DAILY #30 tablet 05/26/17 Metoprolol Succinate [Toprol Xl*] 25 mg PO BID 6AM 6PM #60 tab 05/26/17 Nitroglycerin [Nitrostat*] 0.4 mg SL UD PRN #30 tab 05/26/17 New Medications: Amlodipine [Norvasc*] 5 mg PO DAILY #30 tab Clopidogrel Bisulfate [Plavix*] 75 mg PO DAILY #30 tablet Metoprolol Succinate [Toprol Xl*] 25 mg PO BID 6AM 6PM #60 tab Nitroglycerin [Nitrostat*] 0.4 mg SL UD PRN #30 tab PRN Reason: Chest Pain Patient Discharge Instructions: 1. Patient will need a follow up with his PCP in 1 week to follow up this hospitalization. 2. Patient presented with chest pain. Non ST wave TN in noted. Patient seen by Cardiology. Heart catheterization done. The patient's ejection fraction is normal. There is a very small area on the diaphragmatic surface of the left ventricle that is mildly hypokinetic likely coronary spasm. Coronary arteries have no stenosis. Cardiology recommends medical therapy for his CAD. At discharge patient will continue with aspirin 81 mg daily along with Plavix 75 mg daily. Patient will be given nitroglycerin to be use as needed for chest pain. Recommendation is for the patient to follow up with cardiology in 1 week to follow up this hospitalization. 3. Patient has hypertension. Medications have been adjusted. Patient will no longer take losartan/hydrochlorothiazide. New medication includes metoprolol 25 mg 1 pill twice daily and Norvasc 5 mg daily. Recommendation is to maintain blood pressures less 150/80. Further adjustment can be done by his PCP or cardiology. 4. Patient has hyperlipidemia. Patient will continue with Lipitor 20 mg 1 pill once daily. Diet: AHA Activity: Ad abbie Followup: Ed Reeves MD [ACTIVE - CAN ADMIT] - 1 Week Time spent managing pt's care (in minutes): 55
== END 2017-05-26 08:50 | disposition home or self-care (01) | DRG 282 ==
LOC: ER 13:15 → ERHOLD 14:54 → 3RD-ICU 16:44 → 4TH 05-25 17:25
PROVIDERS: ADMIT Family Medicine; ATTEND Family Medicine
PROC: 4A023N7 Measurement of Cardiac Sampling and Pressure, Left Heart, Percutaneous Approach (ICD-10-PCS; principal; 2017-05-25)
PROC: B205YZZ Plain Radiography of Left Heart using Other Contrast (ICD-10-PCS; 2017-05-25)
DX: I21.4 Non-ST elevation (NSTEMI) myocardial infarction (principal); I25.10 Atherosclerotic heart disease of native coronary artery without angina pectoris; I10 Essential (primary) hypertension; E78.5 Hyperlipidemia, unspecified; E66.9 Obesity, unspecified; Z68.32 Body mass index [BMI] 32.0-32.9, adult
CPT/HCPCS: 36415; 71045; 80048; 80061; 80076; 82550; 82553; 83690; 83735; 83880; 84443; 84484; 85025; 85610; 85730; 93005; 93458; 96361; 96372; 96374; 96375; 99285; C1893; J0360; J0583; J1644; J1650; J2250; J2405; J3010; J7030

== ENCOUNTER 2018-05-17 07:35 | Day surgery (SDC) | payer OTHER ==
--- OUTSIDE RECORDS SUMMARY | 2018-05-17 07:38 | XMS REPORT ---
:1945 Author Organization e[employer] Care Team Providers Name Role Phone Elvin Rocco Provider Role Unavailable Allergies No Known Allergies Problems Problem Type Condition Code Onset Dates Condition Status Assessment Hyperlipidemia, mixed E78.2 Active Assessment Osteoarthritis of multiple joints M15.9 Active Problem Benign essential HTN I10 Active Problem Hyperlipidemia, mixed E78.2 Active Problem History of non-ST elevation I25.2 Active myocardial infarction (NSTEMI) Assessment Benign essential HTN I10 Active Assessment Hospital discharge follow-up Z09 Active Problem Osteoarthritis of multiple joints M15.9 Active Assessment History of non-ST elevation I25.2 Active myocardial infarction (NSTEMI) Medications Medication Code Code Instructions Start End Status Dosage System Date Date Cozaar [facility] 61653559499 50 MG Orally Inactive 1 tablet Once a [facility] 28[facility] 10 MG Orally Active 1 tablet Once a day Toprol XL [facility] 37631423942 25 MG Orally Active 1 tablet BID Plavix [facility] 15741528845 75 MG Orally Active 1 tablet Once a day Norvasc [facility] 33315058220 5 MG Orally Active 1 tablet Once a day Glucosamine Chondr [facility] 92972666758 500-400 MG Active 1 Complex Orally Once a capsule day with a meal Aspirin 81 [facility] 95344450869 81 MG Orally Active 1 tablet Once a day Lipitor [facility] 61606873841 20 MG Orally Active 1 tablet Once a day Hydrochlorothiazide ND 68816041836 12.5 MG Orally Inactive 1 Once a day capsule in the morning Nitrostat [facility] 44193862943 0.4 MG Active not Sublingual defined Multivitamin [facility] 82448163644 - Orally Active not defined Results No Known Results Summary Purpose [employer] Submission
--- OUTSIDE RECORDS SUMMARY | 2018-05-17 07:38 | XMS REPORT ---
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
--- OUTSIDE RECORDS SUMMARY | 2018-05-17 07:38 | XMS REPORT ---
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
--- OUTSIDE RECORDS SUMMARY | 2018-05-17 07:38 | XMS REPORT ---
:1945 Author Organization [employer] Care Team Providers Name Role Phone Rocco Oconnor Provider Role Unavailable Allergies, Adverse Reactions, Alerts Substance Reaction Event Type N.K.D.A. 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 Problem Hyperlipidemia, mixed E78.2 Active Problem Osteoarthritis of multiple joints M15.9 Active Medications Medication Code Code Instructions Start End Status Dosage System Date Date Toprol XL [facility] 88704304196 25 MG Orally Active 1 tablet BID Aspirin 81 [facility] 07272733689 81 MG Orally Active 1 tablet Once a day [facility] 1632[facility]7039 5 MG Orally Active 1 tablet Once a day Norvasc [facility] 74890911827 10 MG Orally Active 1 tablet Once a day Glucosamine [facility] 05965118961 500-400 MG Active 1 capsule Chondr Complex Orally Once a with a day meal Multivitamin [facility] 02144730748 - Orally Active not defined Nitrostat ND 55040713728 0.4 MG Active not Sublingual defined Plavix [facility] 88493039805 75 MG Orally Active 1 tablet Once a [place] Lipitor [place] 91650797574 20 MG Orally Active 1 tablet Once a day Results No Known Results Summary Purpose eClinicalWorks Submission
--- OUTSIDE RECORDS SUMMARY | 2018-05-17 07:38 | XMS REPORT ---
:1945 Author Organization e[employer]Works Care Team Providers Name Role Phone OconnorRocco Provider Role Unavailable Allergies, Adverse Reactions, Alerts Substance Reaction Event Type N.K.D.A. 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 Max 3 dose within 15 min. Seek Immediate Care/Call 911 Toprol XL [facility] 92722366735 25 MG Orally Active 1 tablet BID Glucosamine [facility] 34925859762 500-400 MG Active 1 capsule Chondr Complex Orally Once a with a meal day Multivitamin [facility] 34114936267 - Orally Active not defined Aspirin 81 ND 69227563702 81 MG Orally Active 1 tablet Once a day Nitrostat [facility] 75838852316 0.4 MG Active as directed Sublingual 1 tab every 5 min as needed for CP. Max 3 dose within 15 min. Seek Immediate Care/Call 911 Lipitor [facility] 48130374620 20 MG Orally Active 1 tablet Once a day Toprol XL [facility] 32094717004 25 MG Orally Active 1 tablet Once a day Results No Known Results Summary Purpose [employer]Works Submission
--- OUTSIDE RECORDS SUMMARY | 2018-05-17 07:38 | XMS REPORT ---
[...] End Status Dosage System Date Date Norvasc [facility] 61358941160 10 MG Orally Inactive 1 tablet Once a day Hydrochlorothiazide [facility] 27135672154 12.5 MG Orally March Active 1 capsule Once a day 28, in the 2018 morning Lipitor [facility] 98582060956 20 MG Orally Active 1 tablet Once a day Cozaar [facility] 68224031809 50 MG Orally Active 1 tablet Once a day Results No Known Results Summary Purpose eClinicalWorks Submission
--- OUTSIDE RECORDS SUMMARY | 2018-05-17 07:38 | XMS REPORT ---
:1945 Author Organization eClinicalWorks Care Team Providers Name Role Phone OconnorRocco Provider Role Unavailable Allergies, Adverse Reactions, Alerts Substance Reaction Event Type N.K.D.A. 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 04576410741 81 MG Orally Active 1 tablet Once a day Glucosamine [facility] 99799301273 500-400 MG Active 1 capsule Chondr Complex Orally Once a with a day meal Multivitamin [facility] 42930427397 - Orally Active not defined Toprol XL [facility] 37636594129 25 MG Orally Active 1 tablet Once a day Plavix [facility] 28069345421 75 MG Orally Inactive 1 tablet Once a day Lipitor [facility] 35759943486 20 MG Active TAKE 1 TABLET BY MOUTH EVERY DAY Nitrostat ND 48610810453 0.4 MG Active as Sublingual 1 directed tab every 5 min as needed for CP. Max 3 dose within 15 min. Seek Immediate Care/Call 911 Lipitor [facility] 97320913422 20 MG Orally Active 1 tablet Once a day Norvasc [facility] 41930350720 5 MG Orally Active 1 tablet Once a day Results Name Result Date Reference Range Unit Abnormality Flag UA W/MICROSCOPIC EXAM ----Glucose Neg 20171116 ----Ketone Neg 20171116 ----Specific [place] 1.020 20171116 ----Blood Trace 20171116 ----Leukocytes Neg 20171116 ----Nitrite Neg 20171116 ----Protein Neg 20171116 ----pH 6.0 20171116 Summary Purpose eClinicalWorks Submission
--- OUTSIDE RECORDS SUMMARY | 2018-05-17 07:38 | XMS REPORT ---
:1945 Author Organization eClinicalWorks Care Team Providers Name Role Phone Rocco Oconnor Provider Role Unavailable Allergies No Known Allergies Problems Problem Type Condition Code Onset Dates Condition Status Problem Benign essential HTN I10 Active Problem Hyperlipidemia, mixed E78.2 Active Problem History of non-ST elevation I25.2 Active myocardial infarction (NSTEMI) Problem Osteoarthritis of multiple joints M15.9 Active Assessment Benign essential HTN I10 Active Medications Medication Code System Code Instructions Start Date End Date Status Dosage Toprol XL [facility] 27309449134 25 MG Orally BID Active 1 tablet Results No Known Results Summary Purpose [employer]ClinicalWorks Submission
--- OUTSIDE RECORDS SUMMARY | 2018-05-17 07:38 | XMS REPORT ---
:1945 Author Organization eClinicalWorks Care Team Providers Name Role Phone Rocco Oconnor Provider Role Unavailable Allergies, Adverse Reactions, Alerts Substance Reaction Event Type N.K.D.A. 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 of [place] heart with angina pectoris Problem Adult BMI 33.0-33.9 kg/sq m Z68.33 Active Problem Osteoarthritis of multiple joints M15.9 Active Problem Benign essential HTN I10 Active Problem Hyperlipidemia, mixed E78.2 Active Assessment Former heavy tobacco smoker Z87.891 Active Assessment Adult BMI 33.0-33.9 kg/sq m Z68.33 Active Assessment History of non-ST elevation I25.2 Active myocardial infarction (NSTEMI) Assessment Screening for osteoporosis Z13.820 Active Assessment Osteoarthritis of multiple joints M15.9 Active Assessment Screening for colon cancer Z12.11 Active Assessment Hyperlipidemia, mixed E78.2 Active Medications Medication Code Code Instructions Start End Status Dosage System Date Date Toprol XL [facility] 93027421420 25 MG Orally Active 1 tablet BID Lipitor [facility] 64631664716 20 MG Orally Active 1 tablet Once a day Toprol XL [facility] 86851144215 25 MG Orally Active 1 tablet Once a day Glucosamine [facility] 96294600326 500-400 MG Active 1 capsule Chondr Complex Orally Once a with a meal day Nitrostat [facility] 09764410169 0.4 MG Active as directed Sublingual 1 tab every 5 min as needed for CP. Max 3 dose within 15 min. Seek Immediate Care/Call 911 Aspirin 81 [facility] 09614771840 81 MG Orally Active 1 tablet Once a day Multivitamin [facility] 32442359285 - Orally Active not defined [facility] 96747930854 5 MG Orally Active 1 tablet Once a day Results No Known Results Summary Purpose [employer]ClinicalWorks Submission
[2018-05-17] MEDS ORDERED: Ringers Lactate 1,000 ML IV ONE (07:51)
[2018-05-17] MEDS ORDERED: PROPOFOL 200 MG/20 ML VIAL IV ONE (08:35)
[2018-05-17] MEDS ORDERED: LIDOCAINE 1% MPF 5 ML VIAL ONE (08:36)
--- NOTE | 2018-05-19 21:03 | ENDO RPT ---
[address], [address] COLONOSCOPY PROCEDURE REPORT EXAM DATE: 05/17/2018 PATIENT NAME: Amador Dyer MR #: [id number] BIRTHDATE: 1945 ATTENDING: Lionel Moreno MD STATUS: outpatient EXTRACTIONS TECHNICIAN: Jo Ann Laughlin RN and Cleo Holder INDICATIONS: The patient is a 72 yr old Male here for a colonoscopy due to cologuard screnning test positive PROCEDURE PERFORMED: Colonoscopy with hot biopsy polypectomy MEDICATIONS: Per Anesthesia. ESTIMATED BLOOD LOSS: None CONSENT: The patient understands the risks and benefits of the procedure and understands that these risks include, but are not limited to: sedation, allergic reaction, infection, perforation and/or bleeding. Alternative means of evaluation and treatment include, among others: physical exam, x-rays, and/or surgical intervention. The patient elects to proceed with this endoscopic procedure. DESCRIPTION OF PROCEDURE: During intra-op preparation period all mechanical medical equipment was checked for proper function. Hand hygiene and appropriate measures for infection prevention was taken. Procedure, possible complications, alternatives including, but not limited to possibility of bleeding, perforation, tear, infection, sepsis, need for surgery, need for blood transfusion, were explained to the patient. After the risks, benefits and alternatives of the procedure were thoroughly explained, Informed consent was verified, confirmed and timeout was successfully executed by the treatment team. The patient was placed in the left lateral position. A digital rectal exam was performed and revealed external hemorrhoids. After appropriate level of anesthesia, the scope was passed. The EC-[id number] ([id number]) endoscope was introduced through the anus and advanced to the cecum, which was identified by transillumination from the light source, the appendix, and the ileocecal valve. The quality of the prep was good. The instrument was then slowly withdrawn as the colon was fully examined. Scope withdrawal time was . COLON FINDINGS: Moderate diverticulosis was noted in the descending colon and sigmoid colon. No bleeding was noted from the diverticulosis. Semi-pedunculated polyp with a wide base was found located approximately 18 cm for anal verge. Ulcerated mass located at distal descending colon approximately 45-50 cm form anal verge. Retroflexed views revealed no abnormalities. The scope was then completely withdrawn from the patient and the procedure terminated. ADVERSE EVENTS: There were no complications. IMPRESSIONS: 1. Moderate diverticulosis was noted in the descending colon and sigmoid colon 2. Semi-pedunculated polyp(s) were found; multiple biopsies were performed using hot forceps 3. Ulcerated mass located at distal descending colon approximately 45-50 cm form anal verge 4. External hemorrhoids 5. Internal hemorrhoids RECOMMENDATIONS: 1. await biopsy results 2. follow-up: office 1 week(s) 3. no seeds in diet 4. Most likely pt will require formal partial colectomy. RECALL: for Colonoscopy, pending biopsy results. Lionel Morneo MD eSigned: Lionel Moreno MD 05/17/2018 9:09 AM cc: Rocco Oconnor MD CPT CODES: ICD9 CODES: PATIENT NAME: Amador Dyer MR#: [id number]
== END 2018-05-17 09:32 | disposition home or self-care (01) ==
LOC: OR 07:35
PROVIDERS: ATTEND Surgery
PROC: 0DBN8ZX Excision of Sigmoid Colon, Via Natural or Artificial Opening Endoscopic, Diagnostic (ICD-10-PCS; 2018-05-17)
PROC: 0DBM8ZX Excision of Descending Colon, Via Natural or Artificial Opening Endoscopic, Diagnostic (ICD-10-PCS; principal; 2018-05-17 09:15)
DX: C18.6 Malignant neoplasm of descending colon (principal); D12.5 Benign neoplasm of sigmoid colon; K57.30 Diverticulosis of large intestine without perforation or abscess without bleeding; K64.8 Other hemorrhoids; K64.4 Residual hemorrhoidal skin tags; E78.5 Hyperlipidemia, unspecified; I10 Essential (primary) hypertension; I25.2 Old myocardial infarction; Z79.82 Long term (current) use of aspirin; Z79.899 Other long term (current) drug therapy
CPT/HCPCS: 45384; 88305; J2704

== ENCOUNTER 2018-12-15 13:25 | Emergency (ER) | payer OTHER ==
[2018-12-15 15:11] LABS: Absolute Lymphocytes (CBC) 0.5 K/uL (0.7-4.9); Basophils % 0.5 % (0-1.3); Hematocrit 39.9 % (39.6-49.0); Lymphocytes % 3.6 % (15.3-44.8); MPV 9.2 fL (7.6-11.3); RBC Red Blood Cell Count 4.56 M/uL (4.33-5.43)
[2018-12-15 15:24] LABS: Urine Blood TRACE (NEG); Urine Glucose NEGATIVE (NEG); Urine Protein NEGATIVE (NEG)
[2018-12-15 15:25] LABS: Potassium 3.8 mmol/L (3.5-5.1)
[2018-12-15 16:01] LABS: Urine Bacteria <20 /HPF (NONE SEEN); Urine Culture Reflex Order NOT NEEDED; Urine RBC <5 /HPF (NONE SEEN)
--- NOTE | 2018-12-15 16:13 | RAD REPORT ---
EXAM DESCRIPTION: CT - Abdomen Pelvis W Contrast - 12/15/2018 3:50 pm CLINICAL HISTORY: Abdominal pain hematuria COMPARISON: 2018 TECHNIQUE: Computed axial tomography of the abdomen pelvis was obtained. 100 cc Isovue-300 was admin istered intravenously. Oral contrast was not requested which limits evaluation of bowel. All CT scans are performed using dose optimization technique as appropriate and may include automated exposure control or mA/KV adjustment according to patient size. FINDINGS: Cholecystectomy The liver, spleen, pancreas, and adrenals appear unremarkable. Bladder wall is mildly thickened. Mild enlargement of the prostate gland 9 millimeter intermediate density mass extending off of the lower pole right kidney is unchanged. Sma ll simple renal cysts bilaterally There is no evidence of diverticulitis. Postsurgical changes involve the colon. Rectal wall thickenin g IMPRESSION: Rectal wall thickening may be secondary to incomplete distention or mass. Bladder wall thickening may indicate cystitis
[2018-12-15] MEDS ORDERED: NA CHLORIDE 0.9% 500 ML ONE (16:16)
--- NOTE | 2018-12-15 16:24 | ER ---
Nurse's Notes [facility] Name: Amador Dyer Jr Age: 73 yrs Sex: Male : 1945 Arrival Date: 12/15/2018 Time: 13:29 Bed 4 Private MD: Rocco Oconnor Diagnosis: Cystitis Presentation: 12/15 13:32 Presenting complaint: Patient states: sent by [facility] urgent care for further sv evaluation of hematuria, fever, chills that started yesterday. Transition of care: patient was not received from another setting of care. Onset of symptoms was December 14, 2018. Risk Assessment: Do you want to hurt yourself or someone else? Patient reports no desire to harm self or others. Initial Sepsis Screen: Does the patient meet any 2 criteria? No. Patient's initial sepsis screen is negative. Does the patient have a suspected source of infection? No. Patient's initial sepsis screen is negative. Care prior to arrival: None. 13:32 Method Of Arrival: Ambulatory sv 13:32 Acuity: TIRSO 2 sv Historical: - Allergies: 13:34 No Known Allergies; sv - Home Meds: 13:34 metoprolol tartrate 25 mg Oral tab [Active]; amlodipine 5 mg tab [Active]; atorvastatin sv 20 mg oral tab [Active]; - PMHx: 13:34 High Cholesterol; Hypertension; colon cancer; sv - PSHx: 13:34 Appendectomy; Cholecystectomy; colon resection; sv - Immunization history:: Adult Immunizations up to date. - Ebola Screening: : Patient denies travel to an Ebola-affected area in the 21 days before illness onset. Screenin:45 Abuse screen: Denies threats or abuse. Denies injuries from another. Nutritional aj1 screening: No deficits noted. Tuberculosis screening: No symptoms or risk factors identified. 17:20 Fall Risk None identified. aj1 Assessment: 13:45 General: Appears in no apparent distress. comfortable, Behavior is calm, cooperative, aj1 appropriate for age. Pain: Complains of pain in low back area. Neuro: Level of Consciousness is awake, alert, obeys commands, Oriented to person, place, time, situation. Cardiovascular: Patient's skin is warm and dry. Respiratory: Airway is patent Respiratory effort is even, unlabored, Respiratory pattern is regular, symmetrical. GI: No signs and/or symptoms were reported involving the gastrointestinal system. : Reports burning with urination, urinary frequency, blood in urine. EENT: No signs and/or symptoms were reported regarding the EENT system. Derm: No signs and/or symptoms reported regarding the dermatologic system. Skin is pink, warm \T\ dry. normal. Musculoskeletal: No signs and/or symptoms reported regarding the musculoskeletal system. Circulation, motion, and sensation intact. 14:45 Reassessment: Patient appears in no apparent distress at this time. No changes from aj1 previously documented assessment. Patient and/or family updated on plan of care and expected duration. Pain level reassessed. Patient is alert, oriented x 3, equal unlabored respirations, skin warm/dry/pink. 15:45 Reassessment: Patient appears in no apparent distress at this time. No changes from aj1 previously documented assessment. Patient and/or family updated on plan of care and expected duration. Pain level reassessed. Patient is alert, oriented x 3, equal unlabored respirations, skin warm/dry/pink. 16:45 Reassessment: Patient appears in no apparent distress at this time. No changes from aj1 previously documented assessment. Patient and/or family updated on plan of care and expected duration. Pain level reassessed. Patient is alert, oriented x 3, equal unlabored respirations, skin warm/dry/pink. Vital Signs: 13:34 BP 141 / 100; Pulse 101; Resp 18; Temp 98.8(O); Pulse Ox 96% ; Weight 102.51 kg; Height sv 5 ft. 11 in. (180.34 cm); 14:00 BP 143 / 87; Pulse 99; Resp 18; Pulse Ox 97% on R/A; aj1 15:00 BP 126 / 79; Pulse 80; Resp 18; Pulse Ox 97% on R/A; aj1 16:00 BP 132 / 76; Pulse 78; Resp 18; Pulse Ox 97% on R/A; aj1 16:26 BP 128 / 75; Pulse 85; Pulse Ox 99% ; kb 17:00 BP 114 / 63; Pulse 73; Resp 18; Pulse Ox 97% on R/A; aj1 13:34 Body Mass Index 31.52 (102.51 kg, 180.34 cm) sv ED Course: 13:29 Patient arrived in ED. mr 13:29 Rocco Oconnor DO is Private Physician. mr 13:33 Triage completed. sv 13:35 Arm band placed on. sv 13:37 Milly Carmen, RN is Primary Nurse. aj1 13:45 Patient has correct armband on for positive identification. Bed in low position. Call aj1 light in reach. Side rails up X 1. 13:45 No provider procedures requiring assistance completed. aj1 13:47 Concepción Pace F[facility]-C [facility]. kb 13:47 González Cotton MD is Attending Physician. kb 15:51 CT Abd/Pelvis - IV Contrast Only In Process Unspecified. EDMS 16:23 Raghav Osman MD is Referral Physician. kb 17:19 IV discontinued, intact, bleeding controlled, No redness/swelling at site. Pressure aj1 dressing applied. Administered Medications: 15:45 Drug: NS 0.9% 500 ml Route: IV; Rate: bolus; Site: left antecubital; aj1 17:15 Follow up: IV Status: Completed infusion; IV Intake: 500ml aj1 17:15 Drug: Cipro 500 mg Route: PO; aj1 17:15 Follow up: Response: No adverse reaction aj1 Intake: 17:15 IV: 500ml; Total: 500ml. aj1 Outcome: 16:23 Discharge ordered by MD. kb 17:20 Discharged to home ambulatory. aj1 17:20 Condition: good 17:20 Discharge instructions given to patient, Instructed on discharge instructions, follow up and referral plans. medication usage, Demonstrated understanding of instructions, follow-up care, medications. 17:21 Patient left the ED. aj1 Signatures: Dispatcher [employer] EDAZ Concepción Pace FNP-C FNP-CkMilly Savage, RN RN aj1 Akilah Palma RN RN Jennifer Duenas mr Corrections: (The following items were deleted from the chart) 13:35 13:32 Acuity: TIRSO 3 sv sv 13:38 13:34 BP 141 / 100; Pulse 101bpm; Resp 18bpm; Pulse Ox 96%; 102.51 kg; Height 5 ft. 11 sv in.; BMI: 31.5; sv
--- NOTE | 2018-12-15 16:25 | EDPHYS ---
Physician Documentation [facility] Name: Amador Dyer Jr Age: 73 yrs Sex: Male : 1945 Arrival Date: 12/15/2018 Time: 13:29 Bed 4 Private MD: [facility] ED Physician González Cotton HPI: 12/15 14:39 This 73 yrs old Male presents to ER via Ambulatory with complaints of Urinary kb Problem. 14:39 The patient presents with flank pain, on the right, urinary symptoms, dysuria, kb frequency, hematuria. Onset: The symptoms/episode began/occurred last night. Modifying factors: The symptoms are alleviated by nothing, the symptoms are aggravated by nothing. Associated signs and symptoms: Pertinent positives: dysuria, fever, hematuria, urinary frequency. Severity of symptoms: At their worst the symptoms were moderate, in the emergency department the symptoms are unchanged. The patient has not experienced similar symptoms in the past. The patient has been recently seen at an urgent care, just prior to arrival, for similar complaints, and was sent to the [facility] Emergency Department for further evaluation. Pt reports dysuria, frequency and hematuria since last night. Reports right flank "soreness" for a month. Historical: - Allergies: 13:34 No Known Allergies; sv - Home Meds: 13:34 metoprolol tartrate 25 mg Oral tab [Active]; amlodipine 5 mg tab [Active]; atorvastatin sv 20 mg oral tab [Active]; - PMHx: 13:34 High Cholesterol; Hypertension; colon cancer; sv - PSHx: 13:34 Appendectomy; Cholecystectomy; colon resection; sv - Immunization history:: Adult Immunizations up to date. - Ebola Screening: : Patient denies travel to an Ebola-affected area in the 21 days before illness onset. ROS: 14:38 Constitutional: Negative for fever, chills, and weight loss, Cardiovascular: Negative kb for chest pain, palpitations, and edema, Respiratory: Negative for shortness of breath, cough, wheezing, and pleuritic chest pain, Abdomen/GI: Negative for abdominal pain, nausea, vomiting, diarrhea, and constipation, MS/Extremity: Negative for injury and deformity, Skin: Negative for injury, rash, and discoloration, Neuro: Negative for headache, weakness, numbness, tingling, and seizure. 14:38 : Positive for urinary symptoms, flank pain, urinary frequency, hematuria, burning with urination. Exam: 14:38 Constitutional: This is a well developed, well nourished patient who is awake, alert, kb and in no acute distress. Head/Face: Normocephalic, atraumatic. Neck: Trachea midline, no thyromegaly or masses palpated, and no cervical lymphadenopathy. Supple, full range of motion without nuchal rigidity, or vertebral point tenderness. No Meningismus. Chest/axilla: Normal chest wall appearance and motion. Nontender with no deformity. No lesions are appreciated. Cardiovascular: Regular rate and rhythm with a normal S1 and S2. No gallops, murmurs, or rubs. Normal PMI, no JVD. No pulse deficits. Respiratory: Lungs have equal breath sounds bilaterally, clear to auscultation and percussion. No rales, rhonchi or wheezes noted. No increased work of breathing, no retractions or nasal flaring. Abdomen/GI: Soft, non-tender, with normal bowel sounds. No distension or tympany. No guarding or rebound. No evidence of tenderness throughout. Back: No spinal tenderness. No costovertebral tenderness. Full range of motion. Skin: Warm, dry with normal turgor. Normal color with no rashes, no lesions, and no evidence of cellulitis. MS/ Extremity: Pulses equal, no cyanosis. Neurovascular intact. Full, normal range of motion. Neuro: Awake and alert, GCS 15, oriented to person, place, time, and situation. Cranial nerves II-XII grossly intact. Motor strength 5/5 in all extremities. Sensory grossly intact. Cerebellar exam normal. Normal gait. Vital Signs: 13:34 BP 141 / 100; Pulse 101; Resp 18; Temp 98.8(O); Pulse Ox 96% ; Weight 102.51 kg; Height sv 5 ft. 11 in. (180.34 cm); 14:00 BP 143 / 87; Pulse 99; Resp 18; Pulse Ox 97% on R/A; aj1 15:00 BP 126 / 79; Pulse 80; Resp 18; Pulse Ox 97% on R/A; aj1 16:00 BP 132 / 76; Pulse 78; Resp 18; Pulse Ox 97% on R/A; aj1 16:26 BP 128 / 75; Pulse 85; Pulse Ox 99% ; kb 17:00 BP 114 / 63; Pulse 73; Resp 18; Pulse Ox 97% on R/A; aj1 13:34 Body Mass Index 31.52 (102.51 kg, 180.34 cm) sv MDM: 13:47 Patient medically screened. kb 14:37 Data reviewed: vital signs, nurses notes. Data interpreted: Pulse oximetry: on room air kb is 96 %. Interpretation: normal. 16:22 Counseling: I had a detailed discussion with the patient and/or guardian regarding: the kb historical points, exam findings, and any diagnostic results supporting the discharge/admit diagnosis, lab results, radiology results, the need for outpatient follow up, a family practitioner, a urologist, to return to the emergency department if symptoms worsen or persist or if there are any questions or concerns that arise at home. 12/15 13:48 Order name: Urine Microscopic Only; Complete Time: 16:05 kb 12/15 14:09 Order name: CBC with Diff kb 12/15 14:09 Order name: Basic Metabolic Panel; Complete Time: 15:29 kb 12/15 15:19 Order name: CT Abd/Pelvis - IV Contrast Only; Complete Time: 16:18 kb 12/15 15:20 Order name: Urine Dipstick--Ancillary (enter results); Complete Time: 15:29 eb 12/15 13:47 Order name: Urine Dipstick-Ancillary (obtain specimen); Complete Time: 16:02 kb 12/15 14:09 Order name: IV Start; Complete Time: 16:02 kb Administered Medications: 15:45 Drug: NS 0.9% 500 ml Route: IV; Rate: bolus; Site: left antecubital; aj1 17:15 Follow up: IV Status: Completed infusion; IV Intake: 500ml aj1 17:15 Drug: Cipro 500 mg Route: PO; aj1 17:15 Follow up: Response: No adverse reaction aj1 Disposition: 12/15/18 16:23 Discharged to Home. Impression: Cystitis. - Condition is Stable. - Discharge Instructions: Urinary Tract Infection, Adult, [id number]. - Prescriptions for Cipro 500 mg Oral Tablet - take 1 tablet by ORAL route every 12 hours for 10 days; 20 tablet. - Medication Reconciliation Form, Thank You Letter, Antibiotic Education, Prescription Opioid Use form. - Follow up: Emergency Department; When: As needed; Reason: Worsening of condition. Follow up: Raghav Osman MD; When: 2 - 3 days; Reason: Recheck today's complaints, Continuance of care, Re-evaluation by your physician. Addendum: 12/18/2018 08:23 Co-signature as Attending Physician, González Cotton MD I agree with the assessment and k dr plan of care. Signatures: Dispatcher [employer] EDDC Concepción Pace, LORIN-C HAT COPYIST-CkMilly Savage RN RN aj1 Akilah Palma RN RN sv González Cotton MD MD kdr Corrections: (The following items were deleted from the chart) 12/15 17:21 16:23 12/15/2018 16:23 Discharged to Home. Impression: Cystitis. Condition is Stable. aj1 Forms are Medication Reconciliation Form, Thank You Letter, Antibiotic Education, Prescription Opioid Use. Follow up: Emergency Department; When: As needed; Reason: Worsening of condition. Follow up: Raghav Osman; When: 2 - 3 days; Reason: Recheck today's complaints, Continuance of care, Re-evaluation by your physician. kb
[2018-12-15] MEDS ORDERED: CIPROFLOXACIN HCL 500 MG TAB ONE (17:07)
[2018-12-15 17:24] LABS: Blood Morphology Comment NOT SEEN (NOT SEEN); Platelet Estimate ADEQ; Urine White Blood Cell Casts OK
[2018-12-15 17:25] VITALS: TEMP 98.8
[2018-12-15 17:31] VITALS: BP 114/63; O2SAT 97
== END 2018-12-15 17:21 | disposition home or self-care (01) ==
LOC: ER 13:25
DX: N30.90 Cystitis, unspecified without hematuria (principal); I10 Essential (primary) hypertension; E78.00 Pure hypercholesterolemia, unspecified; Z85.038 Personal history of other malignant neoplasm of large intestine
CPT/HCPCS: 85025; 80048; 36415; 74177; 96360; 99283; Q9967; J7040; 81003; 81015

== ENCOUNTER 2019-04-25 06:24 | Day surgery (SDC) | payer OTHER ==
--- OUTSIDE RECORDS SUMMARY | 2019-04-25 06:26 | XMS REPORT ---
:1945 Author Organization e[employer] Care Team Providers Name Role Phone OconnorRocco Provider Role Unavailable Allergies, Adverse Reactions, Alerts Substance Reaction Event Type N.K.D.A. 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 Problem Osteoarthritis of multiple joints M15.9 Active Assessment History of non-ST elevation I25.2 Active myocardial infarction (NSTEMI) Assessment Osteoarthritis of multiple joints M15.9 Active Assessment Former heavy tobacco smoker Z87.891 Active Assessment Hyperlipidemia, mixed E78.2 Active Assessment Adult BMI 33.0-33.9 kg/sq m Z68.33 Active Assessment Benign essential HTN I10 Active Medications Medication Code Code Instructions Start End Status Dosage System Date Date Glucosamine [facility] 97586333071 500-400 MG Active 1 capsule Chondr Complex Orally Once a with a meal day Aspirin 81 [facility] 98933228293 81 MG Orally Active 1 tablet Once a day Norvasc [facility] 25978933092 5 MG Orally Active 1 tablet Once a day Lipitor [facility] 43273352559 20 MG Orally Active 1 tablet Once a day Toprol XL [facility] 45209366852 25 MG Orally Active 1 tablet Once a day Multivitamin [facility] 86505525695 - Orally Active not defined Nitrostat [facility] 43378990206 0.4 MG Active as directed Sublingual 1 tab every 5 min as needed for CP. Max 3 dose within 15 min. Seek Immediate Care/Call 911 Results No Known Results Summary Purpose eClinicalWorks Submission
--- OUTSIDE RECORDS SUMMARY | 2019-04-25 06:27 | XMS REPORT ---
:1945 Author Organization [employer] Care Team Providers Name Role Phone OconnorRocco Provider Role Unavailable Allergies, Adverse Reactions, Alerts Substance Reaction Event Type N.K.D.A. 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 Problem Osteoarthritis of multiple joints M15.9 Active Assessment Screening for colon cancer Z12.11 Active Assessment Former heavy tobacco smoker Z87.891 Active Assessment Osteoarthritis of multiple joints M15.9 Active Assessment Hyperlipidemia, mixed E78.2 Active Assessment Adult BMI 33.0-33.9 kg/sq m Z68.33 Active Assessment Benign essential HTN I10 Active Assessment History of non-ST elevation I25.2 Active myocardial infarction (NSTEMI) Assessment Medicare annual wellness visit, Z00.00 Active subsequent Medications Medication Code Code Instructions Start End Status Dosage System Date Date Glucosamine [facility] 40972122194 500-400 MG Active 1 capsule Chondr Complex Orally Once a with a meal day Lipitor [facility] 80148493161 20 MG Orally Active 1 tablet Once a day Aspirin 81 [facility] 61133326949 81 MG Orally Active 1 tablet Once a day Norvasc [facility] 75327222058 5 MG Orally Active 1 tablet Once a day Nitrostat [facility] 97614871367 0.4 MG Active as directed Sublingual 1 tab every 5 min as needed for CP. Max 3 dose within 15 min. Seek Immediate Care/Call 911 Toprol XL [facility] 44679971684 25 MG Orally Active 1 tablet Once a day Multivitamin [facility] 27609742535 - Orally Active not defined Results No Known Results Summary Purpose eClinicalWorks Submission
[2019-04-25] MEDS ORDERED: Ringers Lactate 1,000 ML IV ONE (06:45)
[2019-04-25] MEDS ORDERED: LIDOCAINE 1% MPF 5 ML VIAL ONE (07:42)
[2019-04-25] MEDS ORDERED: propofoL 200 MG/20 ML VIAL IV ONE (07:42)
--- NOTE | 2019-04-25 08:14 | ENDO RPT ---
[address], [address] COLONOSCOPY PROCEDURE REPORT EXAM DATE: 04/25/2019 PATIENT NAME: Amador Dyer MR #: [id number] BIRTHDATE: 1945 ATTENDING: Lionel Moreno MD STATUS: outpatient [id number] ARCHITECT: Ciera Kaba CST and Ariana Sim RN INDICATIONS: The patient is a 73 yr old Male here for a colonoscopy due to history of colon cancer PROCEDURE PERFORMED: Colonoscopy MEDICATIONS: Per Anesthesia. ESTIMATED BLOOD LOSS: None CONSENT: The patient understands the risks and benefits of the procedure and understands that these risks include, but are not limited to: sedation, allergic reaction, infection, perforation and/or bleeding. Alternative means of evaluation and treatment include, among others: physical exam, x-rays, and/or surgical intervention. The patient elects to proceed with this endoscopic procedure. DESCRIPTION OF PROCEDURE: During intra-op preparation period all mechanical medical equipment was checked for proper function. Hand hygiene and appropriate measures for infection prevention was taken. Procedure, possible complications, alternatives including, but not limited to possibility of bleeding, perforation, tear, infection, sepsis, need for surgery, need for blood transfusion, were explained to the patient. After the risks, benefits and alternatives of the procedure were thoroughly explained, Informed consent was verified, confirmed and timeout was successfully executed by the treatment team. The patient was placed in the left lateral position. A digital rectal exam was performed and revealed external hemorrhoids. After appropriate level of anesthesia, the scope was passed. The EC-[id number] ([id number]) endoscope was introduced through the anus and advanced to the cecum, which was identified by the ileocecal valve. The quality of the prep was good. The instrument was then slowly withdrawn as the colon was fully examined. Scope withdrawal time was . COLON FINDINGS: Moderate sized internal and external hemorrhoids were found. Retroflexed views revealed no abnormalities. The scope was then completely withdrawn from the patient and the procedure terminated. ADVERSE EVENTS: There were no complications. IMPRESSIONS: Moderate sized internal and external hemorrhoids RECOMMENDATIONS: 1. follow-up: office 1-2 week(s) 2. continue surveillance RECALL: Return in 1 year(s) for Colonoscopy. Lionel Moreno MD eSigned: Lionel Moreno MD 04/25/2019 8:13 AM cc: CPT CODES: ICD9 CODES: PATIENT NAME: Amador Dyer MR#: [id number]
[2019-04-25 08:20] VITALS: TEMP 97.6
[2019-04-25 08:25] VITALS: BP 129/74; O2SAT 97
== END 2019-04-25 08:30 | disposition home or self-care (01) ==
LOC: OR 06:24
PROVIDERS: ATTEND Surgery
PROC: 0DJD8ZZ Inspection of Lower Intestinal Tract, Via Natural or Artificial Opening Endoscopic (ICD-10-PCS; principal; 2019-04-25 07:30)
DX: Z08 Encounter for follow-up examination after completed treatment for malignant neoplasm (principal); K64.8 Other hemorrhoids; K64.4 Residual hemorrhoidal skin tags; Z85.038 Personal history of other malignant neoplasm of large intestine; Z90.49 Acquired absence of other specified parts of digestive tract; I10 Essential (primary) hypertension; I25.10 Atherosclerotic heart disease of native coronary artery without angina pectoris; E78.00 Pure hypercholesterolemia, unspecified; I25.2 Old myocardial infarction; Z82.49 Family history of ischemic heart disease and other diseases of the circulatory system; Z80.8 Family history of malignant neoplasm of other organs or systems
CPT/HCPCS: 45378; J2704; J7120

== ENCOUNTER 2021-07-06 06:59 | Day surgery (SDC) | payer OTHER ==
[2021-07-06] MEDS ORDERED: Ringers Lactate 1,000 ML IV ONE (07:09)
[2021-07-06] MEDS ORDERED: GLYCOPYRROLATE 0.2 MG/ML SYR ONE (08:22)
[2021-07-06] MEDS ORDERED: LIDOCAINE 1% MPF 30 ML VIAL ONE (08:22)
[2021-07-06] MEDS ORDERED: propofoL 200 MG/20 ML VIAL IV ONE ×2 (08:22)
[2021-07-06 09:56] VITALS: BP 115/68; TEMP 97.1; O2SAT 97
== END 2021-07-06 09:35 | disposition home or self-care (01) ==
LOC: OR 06:59
PROVIDERS: ATTEND Surgery
PROC: 0DBM8ZX Excision of Descending Colon, Via Natural or Artificial Opening Endoscopic, Diagnostic (ICD-10-PCS; principal; 2021-07-06 08:30)
DX: K63.5 Polyp of colon (principal); I10 Essential (primary) hypertension; I48.91 Unspecified atrial fibrillation; N40.0 Benign prostatic hyperplasia without lower urinary tract symptoms; Z20.822 Contact with and (suspected) exposure to COVID-19; Z85.038 Personal history of other malignant neoplasm of large intestine
CPT/HCPCS: 88305; 45384; U0003; J2704 ×2; J7120

== ENCOUNTER 2022-10-06 06:52 | Day surgery (SDC) | payer OTHER ==
[2022-10-06] MEDS ORDERED: Ringers Lactate 1,000 ML IV ONE (07:32)
[2022-10-06] MEDS ORDERED: LIDOCAINE 1% MPF 5 ML VIAL ONE (08:26)
[2022-10-06] MEDS ORDERED: propofoL 200 MG/20 ML VIAL IV ONE ×2 (08:26→08:27)
[2022-10-06] MEDS ORDERED: GLYCOPYRROLATE 0.2 MG/ML SYR ONE ×2 (08:26→09:20)
[2022-10-06 13:07] VITALS: BP 107/72; TEMP 97.5; O2SAT 100
== END 2022-10-06 09:35 | disposition home or self-care (01) ==
LOC: OR 06:52
PROVIDERS: ATTEND Surgery
PROC: 0DBP8ZX Excision of Rectum, Via Natural or Artificial Opening Endoscopic, Diagnostic (ICD-10-PCS; 2022-10-06)
PROC: 0DBK8ZX Excision of Ascending Colon, Via Natural or Artificial Opening Endoscopic, Diagnostic (ICD-10-PCS; principal; 2022-10-06 08:15)
DX: Z12.11 Encounter for screening for malignant neoplasm of colon (principal); Z85.038 Personal history of other malignant neoplasm of large intestine; K64.4 Residual hemorrhoidal skin tags; K64.8 Other hemorrhoids; D12.2 Benign neoplasm of ascending colon
CPT/HCPCS: 45384; 88305; J2704 ×2; J2001; J7120